=== PATIENT | male | born 1965 | race Two or more races ===

== ENCOUNTER 2017-03-02 15:32 | Emergency (ER) | payer SELFPAY ==
--- NOTE | 2017-03-02 18:08 | EDM.PDOC ---
ED HPI GENERAL MEDICAL PROBLEM - General Chief Complaint: Lower Extremity Injury/Pain Stated Complaint: RIGHT KNEE PAIN Time Seen by Provider: 03/02/17 18:06 Source of Information: Reports: Patient - History of Present Illness INITIAL COMMENTS - FREE TEXT/NARRATIVE: HISTORY AND PHYSICAL: History of present illness: []Patient presents with 3 out of 10 right knee pain that gets worse with weightbearing and going up steps in a distribution consists with answering bursitis, pain started last week while he was at work and stepped wrong as he is works for the [employer] he did not report the injury at that time as pain was fairly minor has been using ibuprofen and Tylenol which does not seem to be providing further benefit after one week No other injury No fever nausea vomiting chills sweats no chest pain shortness breath headache dizziness palpitation about a urine symptoms Review of systems: As per history of present illness and below otherwise all systems reviewed and negative. Past medical history: As per history of present illness and as reviewed below otherwise noncontributory. Surgical history: As per history of present illness and as reviewed below otherwise noncontributory. Social history: No reported history of drug or alcohol abuse. Family history: As per history of present illness and as reviewed below otherwise noncontributory. Physical exam: HEENT: Atraumatic, normocephalic, pupils reactive, negative for conjunctival pallor or scleral icterus, mucous membranes moist, throat clear, neck supple, nontender, trachea midline. Lungs: Clear to auscultation, breath sounds equal bilaterally, chest nontender. Heart: S1S2, regular, negative for clicks, rubs, or JVD. Abdomen: Soft, nondistended, nontender. Negative for masses or hepatosplenomegaly. Negative for costovertebral tenderness. Pelvis: Stable nontender. Genitourinary: Deferred. Rectal: Deferred. Extremities: Atraumatic, negative for cords or calf pain. Neurovascular unremarkable. Neuro: Awake, alert, oriented. Cranial nerves II through XII unremarkable. Cerebellum unremarkable. Motor and sensory unremarkable throughout. Exam nonfocal. Right lower extremity hip and ankle and affected knee is a for range of motion no redness warmth or swelling no joint line tenderness and and ligament structures are intact no ballooning of the patella no bruising Diagnostics: []Right knee complete Therapeutics: []Rest ice Toradol Impression: Bursitis/tendinitis Definitive disposition and diagnosis as appropriate pending reevaluation and review of above. Right Knee Pain Score (Numeric/FACES): 7 - Related Data Allergies Allergy/AdvReac Type Severity Reaction Status Date / Time No Known Allergies Allergy Verified 03/02/17 16:11 Home Meds: Home Meds Irbesartan [Avapro] 300 mg PO DAILY 03/02/17 [History] metFORMIN [Glucophage] 500 mg PO BID 03/02/17 [History] Past Medical History Cardiovascular History: Reports: Hypertension Endocrine/Metabolic History: Reports: Diabetes, Type II Social & Family History - Family History Family Medical History: Noncontributory - Tobacco Use Smoking Status *Q: Never Smoker Second Hand Smoke Exposure: No - Caffeine Use Caffeine Use: Reports: None - Recreational Drug Use Recreational Drug Use: No Review of Systems - Review of Systems Review Of Systems: ROS reveals no pertinent complaints other than HPI. ED EXAM, GENERAL - Physical Exam Exam: See Below Course - Vital Signs Last Recorded V/S: Last Vital Signs Temp 97.1 F 03/02/17 16:16 Pulse 99 03/02/17 16:16 Resp 14 03/02/17 16:16 BP 155/88 H 03/02/17 16:16 Pulse Ox 97 03/02/17 16:16 - Orders/Labs/Meds Orders: Active Orders 24 hr Category Date Time Status Knee 3V Rt [CR] Stat Exams 03/02/17 18:05 Taken Departure - Departure Time of Disposition: 18:33 Disposition: Home, Self-Care 01 Condition: Good Clinical Impression: Knee pain - Discharge Information Referrals: PCP,None [Primary Care Provider] - Forms: ED Department Discharge Additional Instructions: Medication as prescribed Return if symptoms persist or worsen Follow-up with primary care or occupational health in 2 weeks and work note for [address] [facility] [address] [place] [address] The following information is given to patients seen in the emergency department who are being discharged to home. This information is to outline your options for follow-up care. We provide all patients seen in our emergency department with a follow-up referral. The need for follow-up, as well as the timing and circumstances, are variable depending upon the specifics of your emergency department visit. If you don't have a primary care physician on staff, we will provide you with a referral. We always advise you to contact your personal physician following an emergency department visit to inform them of the circumstance of the visit and for follow-up with them and/or the need for any referrals to a consulting specialist. The emergency department will also refer you to a specialist when appropriate. This referral assures that you have the opportunity for follow-up care with a specialist. All of these measure are taken in an effort to provide you with optimal care, which includes your follow-up. Under all circumstances we always encourage you to contact your private physician who remains a resource for coordinating your care. When calling for follow-up care, please make the office aware that this follow-up is from your recent emergency room visit. If for any reason you are refused follow-up, please contact the [facility] emergency department at and asked to speak to the emergency department charge nurse. - My Orders Last 24 Hours: My Active Orders 03/02/17 18:05 Knee 3V Rt [CR] Stat - Assessment/Plan Last 24 Hours: My Active Orders 03/02/17 18:05 Knee 3V Rt [CR] Stat
--- NOTE | 2017-03-04 06:06 | CR ---
EXAM DATE: 03/02/17 PATIENT'S AGE: 52 Patient: CECILY VELARDE Facility: [place], [place] Site . Site : 1965 Study: XRay Knee [id number] 6:24:59 PM Ordering Physician: Beth Leon Final Report: HISTORY: Pain, injury. FINDINGS: Three views of the right knee demonstrate maintenance of the medial, lateral and patellofemoral joint spaces. Small amount of suprapatellar joint fluid is seen. A small 5 mm oval soft tissue calcification seen in the subcutaneous fat of the anterior superior knee. IMPRESSION: Small amount of suprapatellar joint fluid without bony abnormality. Dictated by Flaquita Holt MD @ 03/02/2017 6:38:40 PM Dictated by: Flaquita Holt MD @ 03/02/2017 18:39:15 (Electronic Signature) Report Signed by Proxy. PAGE
== END 2017-03-02 18:54 | disposition home or self-care (01) ==
LOC: MW.ED 15:32
DX: M76.51 Patellar tendinitis, right knee (principal); M70.51 Other bursitis of knee, right knee; I10 Essential (primary) hypertension; E11.9 Type 2 diabetes mellitus without complications; Z79.899 Other long term (current) drug therapy; Z79.84 Long term (current) use of oral hypoglycemic drugs
CPT/HCPCS: 73562-26-RT; 73562-RT; 99282; 99283